=== PATIENT | male | born 1980 | race Hispanic/Latino ===

== ENCOUNTER 2021-02-11 17:00 | Emergency (ER) | payer OTHER ==
[~2021-02-11] VITALS: Ht 165.1 cm; Wt 83.9 kg
[2021-02-11] MEDS ORDERED: 0.9%NACL 1000ML 1,000 ML IV ONE ×2 (17:01→18:00)
[2021-02-11 17:24] VITALS: BP 111/67
[2021-02-11] MEDS ORDERED: CEFTRIAXONE 1G VIAL IVP ONE (17:30)
[2021-02-11] MEDS ORDERED: ALBUTEROL INHALER 90MCG/INH IH PRN (17:30)
[2021-02-11] MEDS ORDERED: ACETAMINOPHEN WITH CODEINE 1 TAB TAB PO ONE (17:30)
[2021-02-11 17:37] LABS: BASOPHILS % (AUTO) 0.1 % (0.0-5.0); HEMATOCRIT 41.4 % (42-54); LYMPHOCYTES % (AUTO) 2.5 % (21.0-51.0); MEAN CORPUSCULAR HEMOGLOBIN 29.7 pg (27.0-33.0); MEAN CORPUSCULAR HGB CONC 36.2 g/dL (32.0-36.0); MONOCYTES % (AUTO) 5.5 % (3.0-13.0); NEUTROPHILS % (AUTO) 91.4 % (40.0-77.0); PLATELET COUNT (AUTO) 128 K/uL (130-400); RED BLOOD CELL COUNT(AUTO) 5.05 MIL/uL (4.50-6.20); WHITE BLOOD COUNT (AUTO) 8.8 K/uL (4.8-10.8)
[2021-02-11 17:45] LABS: CREATININE 0.9 mg/dL (0.5-1.5); POTASSIUM 3.7 mmol/L (3.5-5.1)
[2021-02-11 17:49] LABS: ALBUMIN 3.3 g/dL (3.5-5.0); BILIRUBIN,TOTAL 0.6 mg/dL (0.2-1.0); TOTAL PROTEIN, SERUM 6.8 g/dL (6.0-8.3)
[2021-02-11 17:55] LABS: B-TYPE NATRIURETIC PEPTIDE 117 pg/mL (0-100)
[2021-02-11 17:58] LABS: CRP QUANTITATIVE 199.2 mg/L (0.00-9.0)
[2021-02-11] MEDS ORDERED: INSULIN HUMULIN R 100 UNIT/ML 3ML IV ONE (18:00)
[2021-02-11 18:20] LABS: ABG BASE EXCESS -5.7 mmol/L (-2.0-3.0); ABG HCO3 17.1 mmol/L (21.0-28.0); ABG OXYGEN SATURATION 94.9 % (95.0-99.0); ABG PCO2 27 mmHg (35-48)
[2021-02-11 19:13] VITALS: BP 121/73
[2021-02-11] MEDS ORDERED: BENZ-17 PO (19:16)
[2021-02-11] MEDS ORDERED: METF-444 PO (19:16)
[2021-02-11] MEDS ORDERED: AMOX-429 PO (19:16)
[2021-02-11] MEDS ORDERED: ALBUHFA IH (19:17)
[2021-02-11 20:30] VITALS: BP 120/68
== END 2021-02-11 20:34 | disposition home or self-care (01) ==
LOC: EDH 17:00
DX: U07.1 COVID-19 (principal); J12.89 Other viral pneumonia; E86.0 Dehydration; R73.9 Hyperglycemia, unspecified; Z87.891 Personal history of nicotine dependence; Z79.84 Long term (current) use of oral hypoglycemic drugs; Z79.899 Other long term (current) drug therapy
CPT/HCPCS: 36415; 36600; 71045; 80053; 82803; 83605; 83880; 85025; 86140; 87040 ×2; 96361; 96374; 96375; 99284; J0696; J1815; J7030

== ENCOUNTER 2021-02-14 11:26 | Emergency (ER) | payer OTHER ==
[~2021-02-14] VITALS: Ht 165.1 cm; Wt 81.6 kg
[~2021-02-14 11:26] MED LIST: ALBUHFA IH; AMOX-429 PO; BENZ-17 PO; METF-444 PO
[2021-02-14 11:28] VITALS: BP 160/87
[2021-02-14] MEDS ORDERED: 0.9%NACL 1000ML 1,000 ML IV ONE (11:58)
[2021-02-14] MEDS ORDERED: FAMOTIDINE 20MG VIAL IV SCH (12:00)
[2021-02-14 12:02] LABS: BASOPHILS % (AUTO) 0.2 % (0.0-5.0); HEMATOCRIT 45.2 % (42-54); LYMPHOCYTES % (AUTO) 10.8 % (21.0-51.0); MEAN CORPUSCULAR HEMOGLOBIN 29.7 pg (27.0-33.0); MEAN CORPUSCULAR HGB CONC 36.1 g/dL (32.0-36.0); MEAN CORPUSCULAR VOLUME 82.3 fL (79-99); MONOCYTES % (AUTO) 16.9 % (3.0-13.0); NEUTROPHILS % (AUTO) 70.5 % (40.0-77.0); PLATELET COUNT (AUTO) 170 K/uL (130-400); RED BLOOD CELL COUNT(AUTO) 5.49 MIL/uL (4.50-6.20); RED CELL DISTRIBUTION WIDTH 11.8 % (11.0-15.5); WHITE BLOOD COUNT (AUTO) 4.4 K/uL (4.8-10.8)
[2021-02-14 12:11] LABS: CREATININE 0.9 mg/dL (0.5-1.5); POTASSIUM 4.4 mmol/L (3.5-5.1)
[2021-02-14 12:15] LABS: ALBUMIN 3.1 g/dL (3.5-5.0); BILIRUBIN,TOTAL 0.8 mg/dL (0.2-1.0); TOTAL PROTEIN, SERUM 7.4 g/dL (6.0-8.3)
[2021-02-14 13:02] LABS: BILIRUBIN,DIRECT 0.2 mg/dL (0.0-0.3)
[2021-02-14] MEDS ORDERED: CEFTRIAXONE 1G VIAL 1 GM in 0.9%NACL 100ML 100 ML IV ONE (15:00)
[2021-02-14] MEDS ORDERED: ONDANSETRON 4MG INJ IVP SCH (15:00)
[2021-02-14] MEDS ORDERED: SOLU-MEDROL 125MG VIAL IVP SCH (15:00)
[2021-02-14] MEDS ORDERED: MORPHINE 4 MG SYG IV SCH (15:00)
[2021-02-14] MEDS ORDERED: 0.9%NACL 1000ML 1,000 ML IV SCH (15:00)
[2021-02-14 15:22] VITALS: BP 135/83
[2021-02-14] MEDS ORDERED: CEFTRIAXONE 1G VIAL IVP SCH (15:30)
[2021-02-14 16:35] VITALS: BP 126/76
[2021-02-14] MEDS ORDERED: 0.9% NACL 250ML IV ONE (18:00)
[2021-02-14] MEDS ORDERED: ALBUTEROL INHALER 90MCG/INH IH SCH (18:00)
[2021-02-14] MEDS ORDERED: DOXYCYCLINE 100MG IVPB (VIAL) IVPB ONE (18:00)
[2021-02-14 18:03] LABS: HEMOGLOBIN A1C 10.5 % (4.0-6.0)
[2021-02-14] MEDS ORDERED: METF-444 PO (18:18)
[2021-02-14] MEDS ORDERED: GLIP5TAB11 PO (18:18)
[2021-02-14] MEDS ORDERED: GUAFACSF5L PO (18:18)
[2021-02-14] MEDS ORDERED: DOXY100T2 PO (18:18)
[2021-02-14] MEDS ORDERED: DOXYCYCLINE HYCLATE 100 MG TABLET PO SCH (19:00)
[2021-02-14] MEDS ORDERED: ENOXAPARIN SODIUM 80 MG/0.8 ML SQ SCH (21:00)
== END 2021-02-14 19:00 | disposition home or self-care (01) ==
LOC: EDH 11:26
DX: U07.1 COVID-19 (principal); J96.01 Acute respiratory failure with hypoxia; J12.82 Pneumonia due to coronavirus disease 2019; E11.65 Type 2 diabetes mellitus with hyperglycemia; Z79.84 Long term (current) use of oral hypoglycemic drugs; Z79.899 Other long term (current) drug therapy; Z87.891 Personal history of nicotine dependence
CPT/HCPCS: 36415; 71045; 80053; 82248; 82550; 82728; 83036; 83615; 84484; 85025; 85378; 85651; 86140; 93005; 96374; 96375; 99285; J0696; J3490; J7030